=== PATIENT | male | born 1990 | race Asian ===

== ENCOUNTER → 2019-03-15 | Day surgery (SDC) | payer BC ==
[2019-03-15] VITALS (9 sets, daily range): BP systolic 113–148; BP diastolic 51–88
[~2019-03-15] VITALS: Ht 177.8 cm; Wt 68.0 kg
[~2019-03-15] MED LIST: Acetaminophen (Non formulary) 100 ML IV ONE; Atropine Sulfate 0.4mg/ml inj IVP PRN; Bacitracin 50000 Units Vial ONE; Bupivacaine w/Epi 0.5% 30ml Vial INJ ONE; D5 1/2NS 1,000 ML IV SCH; Dexamethasone 4mg/ml vial ONE; DiphenhydrAMINE 50mg/ml Inj IVP PRN; Glycopyrrolate 0.2mg/ml 1ml Vial ONE; HYDROcodone/Acetamin 5/325 tab ORAL PRN; HYDROcodone/Acetamin 7.5/325 tab ORAL PRN; HYDROmorphone 1mg/ml Carpuject SUBQ PRN; Hydromorphone 0.5mg/0.5ml inj IVP PRN; Ketamine 500mg Inj ONE; Ketorolac 30mg Inj IV PRN; LORazepam Inj 2mg/ml 1ml IV PRN; LR 1000ml 1,000 ML IVLG SCH; LR 1000ml ONE; Labetalol 5mg/ml 20ml vial IV PRN; Lidocaine 1% MPF 10mg/ml 5ml ONE; MULTIVITAMINS1 EAC2 ORAL; Meperidine 50mg/ml Inj(FOR RIGORS ONLY) IVP PRN; Metoclopramide 10mg/2ml Inj IVP PRN; Midazolam 2mg/2ml Inj IVP PRN; NS Irrig 1000ml ONE; Neostigmine 1mg/ml 10ml Inj ONE; Propofol 200mg/20ml IV ONE; Sodium Chloride 10ml vial INJ ONE; Sterile Water Irrig 1000ml IRRIG ONE; TRUVADA 200 MG1 EAC1 ORAL; Tylenol #3 tab (300mg/30mg) ORAL PRN; ceFAZolin sod 2 GM in D5W 110 ML IV ONE; fentaNYL 100 mcg/2 mL IV ONE; fentaNYL 100 mcg/2 mL IV PRN; oxyCODONE HCL/Acetaminophen 5/325mg ORAL PRN
--- NOTE | 2019-03-15 11:23 | Pre-Procedure Note/Attestation ---
Pre-Procedure Note/Attestation Complete Prior to Procedure Planned Procedure: right Procedure Narrative: Laparoscopic right inguinal hernia repair with mesh, possible left Indications for Procedure Pre-Operative Diagnosis: right inguinal hernia; possible left Attestation I attest that I discussed the nature of the procedure; its benefits; risks and complications; and alternatives (and the risks and benefits of such alternatives ), prior to the procedure, with the patient (or the patient's legal sales representative metals). I attest that, if there was a reasonable possibility of needing a blood transfusion, the patient (or the patient's legal sales representative metals) was given the [facility] standardized written summary, pursuant to the [place] Calder[place] Blood Safety Act ([place] Health and Safety Code # 1645, as amended). I attest that I re-evaluated the patient just prior to the surgery and that there has been no change in the patient's H&P, except as documented below: Wade Pacheco Mar 15, 2019 11:23
--- NOTE | 2019-03-15 12:09 | Anethesia Preoperative Eval ---
Anesthesia Pre-op PMH/ROS General Date of Evaluation: Mar 15, 2019 Time of Evaluation: 11:54 Anesthesiologist: Ofe ASA Score: ASA 1 Mallampati Score Class I : Soft palate, uvula, fauces, pillars visible Class II: Soft palate, uvula, fauces visible Class III: Soft palate, base of uvula visible Class IV: Only hard plate visible Mallampati Classification: Class I Surgeon: Junior Diagnosis: Abd Pain Surgical Procedure: Laparoscopic Right Inguinal Hernia Repair with Mesh Anesthesia History: none Family History: no anesthesia problems Allergies: Coded Allergies: No Known Allergies (Unverified , 03/15/19) Medications: see eMAR Patient NPO?: Yes Anesthesia Pre-op Phys. Exam Physician Exam Last Vital Signs Date Time Temp Pulse Resp B/P (MAP) Pulse Ox O2 Delivery O2 Flow Rate FiO2 03/15/19 12:05 98.2 46 20 126/88 100 Room Air Constitutional: NAD Neurologic: CN 2-12 intact Cardiovascular: RRR Respiratory: CTA Gastrointestinal: S/NT/ND Airway Exam Mallampati Score: Class I MO: full ROM: full Teeth: intact Anesthesia Pre-op A/P Risk Assessment & Plan Assessment: ASA 1 Plan: GA, SED, GlideScope Go Status Change Before Surgery: No Pre-Antibiotics Dru gram Ancef IV Given Within 1 Hr of Incision: Yes Time Given: 12:16 George Thakur MD Mar 15, 2019 12:09
--- NOTE | 2019-03-15 13:29 | Immediate Post-Op Evaluation ---
Immediate Post-Op Evalulation Immediate Post-Op Evalulation Procedure: Laparoscopic Right Inguinal Hernia Repair with Mesh Date of Evaluation: Mar 15, 2019 Time of Evaluation: 14:23 IV Fluids: 1000 LR Blood Products: 0 Estimated Blood Loss: 25 Urinary Output: 0 Blood Pressure Systolic: 118 Blood Pressure Diastolic: 60 Pulse Rate: 48 Respiratory Rate: 16 O2 Sat by Pulse Oximetry: 100 Temperature (Fahrenheit): 97.1 Pain Score (1-10): 2 Nausea: No Vomiting: No Complications 0 Patient Status: awake, reacts, patent, extubated, none Hydration Status: adequate Dru Gram Ancef IV Given Within 1 Hr of Incision: Yes Time Given: 12:16 George Thakur MD Mar 15, 2019 13:29
--- NOTE | 2019-03-15 13:30 | 48 Hour Post Anesthesia Eval ---
Post Anesthesia Evaluation Procedure: Laparoscopic Right Inguinal Hernia Repair with Mesh Date of Evaluation: Mar 15, 2019 Time of Evaluation: 16:34 Blood Pressure Systolic: 116 0: 62 Pulse Rate: 52 Respiratory Rate: 18 Temperature (Fahrenheit): 98.2 O2 Sat by Pulse Oximetry: 100 Airway: patent Nausea: No Vomiting: No Pain Intensity: 2 Hydration Status: adequate Cardiopulmonary Status: Stable Mental Status/LOC: patient returned to baseline Follow-up Care/Observations: 0 Post-Anesthesia Complications: 0 Follow-up care needed: ready to discharge George Thakur MD Mar 15, 2019 13:30
--- NOTE | 2019-03-15 14:03 | Brief Operative Note ---
Immediate Post Operative Note Operative Note Pre-op Diagnosis: right inguinal hernia; possible left Procedure: lap right inguinal hernia repair with mesh Post-op Diagnosis: right indirect inguinal hernia Surgeon: armando Anesthesiologist: katherine Anesthesia: general, local Specimen: none Complications: none Condition: stable Fluids: see records Estimated Blood Loss: minimal Drains: none Implant(s) used?: Yes Wade Pacheco Mar 15, 2019 14:03
--- NOTE | 2019-03-16 16:45 | Operative Note - Dictated ---
DATE OF OPERATION: 03/15/2019 PREOPERATIVE DIAGNOSIS: Right inguinal hernia. POSTOPERATIVE DIAGNOSIS: Right indirect inguinal hernia. OPERATION PERFORMED: Laparoscopic right inguinal hernia repair with mesh. ATTENDING SURGEON: Wade Pacheco M.D. DATABASE MARKETING SPECIALIST: None. ANESTHESIOLOGIST: George Thakur M.D. ANESTHESIA: General GETA. ESTIMATED BLOOD LOSS: Minimal. IV FLUIDS: Please see anesthesia records. COMPLICATIONS: None. DRAINS: None. COUNTS: Sponge and needle count correct x2. WOUND CLASSIFICATION: Class I. ANTIBIOTICS: Ancef 2 g IV given one hour prior to cut time. IMPLANTS: Bard 3D mesh large fitted pre-cut laparoscopic right inguinal mesh, lot number [id number], reference [id number], date of expiration 06/17/2023. INDICATIONS FOR PROCEDURE: This is a 28-year-old male who was referred to Dr. Pacheco by his primary care physician who was newly identified a right inguinal hernia. The patient began complaining of right inguinal discomfort and after workup including ultrasound was identified to have a hernia warranting surgical evaluation. The patient was seen in the office, evaluated and identified to have a right inguinal hernia. Risks, benefits, and alternatives of surgery were discussed with the patient in detail, who expressed understanding and consented to surgery. Surgery was scheduled for 03/15/2019. OPERATIVE NOTE: The patient was taken to the operating room and placed on operating room table in supine position with bilateral arms tucked. All bony prominences were well padded. SCDs placed. Preoperative time-out taken identifying the patient, procedure, operative staff, and surgical staff. General anesthesia was induced and the patient was intubated. No Hess catheter was inserted given the patient voided prior to entering the operating room. A 2 g Ancef IV were given one hour prior to cut time. An infraumbilical incision was made and carried using a fresh #11 scalpel and carried down to the fascia, was elevated and incised. Entry into the abdomen was obtained using the open Chase technique without complication. A 12 mm Chase trocar was inserted and the abdomen was insufflated to 12 to 15 mmHg. Laparoscope was inserted and abdomen was inspected. The right upper quadrant was evaluated. The liver, gallbladder, and portions of the intestines that could be identified were otherwise healthy and normal without complication. Good sharp liver edges were identified. In the left upper quadrant, the portion of the diaphragm, left lobe of the liver, stomach, and intestines that could be identified were otherwise normal. No hernias or other abnormalities noted. In the left lower quadrant, no indirect inguinal hernia or defect identified. Portions of the sigmoid colon that could be identified were otherwise healthy. Pelvis looked normal. In the right lower quadrant, there was an indirect inguinal hernia clearly identified with a long tunneling tract that had omentum within it. Secondary trocars were placed under direct visualization beginning with a 5 mm left mid abdominal, followed by 5 mm right abdominal trocar. Laparoscopic graspers were used and the omentum was reduced from the right indirect inguinal hernia. Anatomical landmarks were identified and incision was made in peritoneal lining 2 cm proximal to the hernia defect. Incision was carried laterally and medially and a dissection was carried through the peritoneal flap. Medially the pubic tubercle and Casey's ligament were clearly identified and dissected off. Dissection was carried laterally and superficially to ensure good mesh positioning. The indirect inguinal hernia sac was slowly reduced. No lipoma of the cord was noted. Cord structures were clearly identified and mobilized from the hernia sac to ensure protection throughout the procedure. The hernia sac was delicately dissected out and ligated high. Once this was completed, a satisfactory and appropriate clear dissection for mesh placement was identified. The indirect hernia defect was noted. No direct hernia defect was noted. No femoral obturator or other abnormalities that could be clearly identify were noted. Good hemostasis was noted. Cord structures, epigastrics were noted and not injured throughout the dissection process. At this time, a Bard large pre-fitted 3D mesh was brought to the operative field and entered, was placed into the abdomen through the 12 mm umbilical trocar site. The mesh was appropriately positioned and adequate dissection was noted for good mesh positioning. The mesh was tacked into place at the level of pubic tubercle and Casey's ligament, and positioned and fashioned appropriately. All hernia defect sites were clearly identifiable were protected and covered by mesh. At this time, the peritoneal flap was reapproximated using laparoscopic ProTack absorbable tacks. The same tacks were used to tack the mesh to Casey's ligament. A good satisfactory hernia repair was clearly identified without any complication. Good mesh placement noted. At this time, no further intervention was necessary. Secondary trocars were removed under direct position followed by the umbilical trocar site. The abdomen was desufflated. Of note, local anesthetic was used throughout the procedure at the incision site and port sites. The umbilical trocar site fascia was reapproximated using a [id number] #0 Vicryl suture. The wounds were cleansed, hemostasis noted and reapproximated the skin edges using 4-0 Monocryl subcuticular interrupted sutures. Skin glue and Steri-Strips were applied. At the end of the procedure, the scrotal sac was clearly identified and both testicles noted within the scrotal sac. The patient tolerated the procedure well, was extubated and taken to postanesthetic care unit in stable condition and discharged home safely. Wade Pacheco M.D. DR: LIBIA JOB#: [id number] CC:
== END | disposition home or self-care (01) ==
LOC: SUR 10:48
DX: K40.90 Unilateral inguinal hernia, without obstruction or gangrene, not specified as recurrent (principal)
CPT/HCPCS: 49650; C1781; J0690; J1100; J1885; J2250; J2405; J2704; J2710; J3010; J3490; 94003; 94150